=== PATIENT | male | born 1965 | race Caucasian/White ===

== ENCOUNTER → 2018-06-16 | Outpatient (CLI) | payer OTHER ==
[~2018-06-16] MED LIST: CEPH500 PO; DOXY100; ETANERCEPT; FOLI1 PO; Flomax0.4 MG PO; METTREX2.5 PO; NAPR500; Norco 5-325 Ta1 EACH PO; OXYACE5T PO; PRED5; PRED5 PO; PROACE100 PO; RXCEPH500 PO; RXPROACE PO; TOBDEXOPSU OP; VITS
[2018-06-16 17:08] LABS: C-REACTIVE PROTEIN, EXT RANGE <0.290 mg/dL (0.000-0.300)
[2018-06-16 17:12] LABS: Prostate Specific Antigen 0.854 ng/mL (0.000-4.000)
== END ==
LOC: EDSTATUS 13:35 → LAB SHORT 14:35 → LAB 14:35
PROVIDERS: Registered Nurse
DX: L40.50 Arthropathic psoriasis, unspecified (principal); N40.0 Benign prostatic hyperplasia without lower urinary tract symptoms; E66.3 Overweight; R53.83 Other fatigue; E29.1 Testicular hypofunction; Z83.3 Family history of diabetes mellitus
CPT/HCPCS: 36415; 83036; 84153; 84403; 86140

== ENCOUNTER → 2019-09-05 | Outpatient (CLI) | payer OTHER | END | disposition home or self-care (01) | LOC: PLD 07:15 → LAB SHORT 07:15 | DX: L57.0 Actinic keratosis (principal) | CPT/HCPCS: 88305 ==

== ENCOUNTER → 2021-05-02 | Outpatient (CLI) | payer OTHER | END | disposition home or self-care (01) | LOC: LAB SHORT 12:36 | DX: D22.0 Melanocytic nevi of lip (principal); D22.39 Melanocytic nevi of other parts of face; B88.0 Other acariasis | CPT/HCPCS: 88305 ==

== ENCOUNTER → 2021-12-23 | Outpatient (CLI) | payer OTHER ==
[~2021-12-23] MED LIST changes: +DEPO-TESTO200 MG/1 M; -ETANERCEPT; +ETANERCEPT SC; +Hytrin1 MG PO
== END | disposition home or self-care (01) ==
LOC: LAB SHORT 07:39 → LAB 07:39 → PLD 07:39
DX: L72.0 Epidermal cyst (principal)
CPT/HCPCS: 88304

== ENCOUNTER 2022-03-18 06:46 | Day surgery (SDC) | payer OTHER ==
[~2022-03-18] VITALS: Ht 180.3 cm; Wt 90.1 kg
--- NOTE | 2022-03-18 08:07 | NUR ---
Ambulatory in Day Surgery History, Chart, Medications and Allergies reviewed before start of procedure. Lungs with occasional inspiratory right anterior only but clear. Denies SOB. Pre-Op teaching done. Pt verbalizes understanding. Patient States Post-Procedure ride home has been arranged.
--- NOTE | 2022-03-18 10:31 | NUR ---
PT TO STEP. DENIES COMPLAINTS. DRESSING D/I.
--- NOTE | 2022-03-18 10:48 | NUR ---
WRITTEN AND VERBAL D/C INSTRUCTIONS GIVEN TO PT WITH STATED UNDERSTANDING.
--- NOTE | 2022-03-19 07:46 | NUR ---
03/19/22 0746 Odette Kerr VERIFICATIONS, AUDITS.
== END 2022-03-18 11:11 | disposition home or self-care (01) ==
LOC: ORSCMMR 06:46 → ORD 08:30 → ORSCMMR 11:11
PROVIDERS: Surgery
PROC: 0HB8XZZ Excision of Buttock Skin, External Approach (ICD-10-PCS; principal; 2022-03-18 08:30)
PROC: 0HB8XZX Excision of Buttock Skin, External Approach, Diagnostic (ICD-10-PCS; principal; 2022-03-18 08:30)
DX: L72.3 Sebaceous cyst (principal); L91.8 Other hypertrophic disorders of the skin; J45.909 Unspecified asthma, uncomplicated; L40.50 Arthropathic psoriasis, unspecified; Z79.899 Other long term (current) drug therapy
CPT/HCPCS: 88304; J0171; J0690; J2250; J2704; J3010; J7120

== ENCOUNTER → 2022-03-19 | Outpatient (CLI) | payer OTHER | END | disposition home or self-care (01) | LOC: LAB SHORT 08:00 → LAB 08:00 | DX: Z13.228 Encounter for screening for other metabolic disorders (principal); R10.2 Pelvic and perineal pain; M54.50 Low back pain, unspecified; F32.9 Major depressive disorder, single episode, unspecified | CPT/HCPCS: 85651 ==